=== PATIENT | male | born 1960 | race African-American/Black ===

== ENCOUNTER 2024-04-29 18:28 | Inpatient (IN) | payer MEDICAID, OTHER ==
[~2024-04-29] VITALS: Ht 180.3 cm; Wt 122.0 kg
[2024-04-29 19:20] LABS: Basophils # (auto) 0.1 10 ^3/uL (0-0.2); Eosinophils # (auto) 0.1 10 ^3/uL (0-0.8); Lymphocytes # (auto) 0.3 10 ^3/uL (0.4-5.4); Red Cell Distribution Width 18.3 % (11.8-14.3); White Blood Cell 7.1 10^3/uL (4.4-10.8)
[2024-04-29 19:24] LABS: Basophils % (auto) 0.7 % (0.0-2.0); Eosinophils % (auto) 1.3 % (0.0-7.0); Hematocrit 36.3 % (41.0-53.0); Hemoglobin 11.7 g/dL (13.5-17.5); Lymphocytes % (auto) 4.8 % (10.0-50.0); Mean Corpuscular Hemoglobin 27.2 pg (28.0-32.0); Mean Corpuscular Hgb Conc. 32.4 g/dL (32.0-36.0); Mean Corpuscular Volume 84.1 fL (80.0-100.0); Monocytes # (auto) 0.6 10 ^3/uL (0-1.3); Neutrophils # (auto) 5.9 10 ^3/uL (1.6-8.6); Neutrophils % (auto) 84.2 % (37.0-80.0); Red Blood Cells 4.32 10^6/uL (4.5-5.90)
[2024-04-29 19:43] LABS: Chloride 97 mmol/L (98-107); Potassium 3.9 mmol/L (3.5-5.1); Sodium 136 mmol/L (136-145)
[2024-04-29 19:44] LABS: Anion Gap 7 (5-15); Calcium 8.4 mg/dL (8.5-10.1); Carbon Dioxide 32 mmol/L (20-30)
[2024-04-29 19:49] LABS: BUN/Creatinine Ratio 5.1 (10.0-20.0); Blood Urea Nitrogen 33 mg/dL (9-23); Glucose 153 mg/dL (74-106)
[2024-04-29 19:57] LABS: INR 1.33 (0.9-1.15); Prothrombin Time 13.8 sec (9.3-11.8)
[2024-04-29 19:59] LABS: Platelet Estimate Decreased
[2024-04-29] MEDS: HYDROcodone-ACET 10/325MG TAB PO ONE (20:32)
[2024-04-29 20:48] VITALS: O2SAT 95
[2024-04-29] MEDS ORDERED: DOCUSATE SOD 100 MG CAP PO PRN (22:30)
[2024-04-29] MEDS ORDERED: DEXTROSE (50%) 50ML SYRG IV PRN (22:30)
[2024-04-29] MEDS ORDERED: MORPHINE SULFATE INJ 2 MG/ml SYRG IV PRN (22:30)
[2024-04-29] MEDS ORDERED: NITROGLYCERIN 0.4 MG SL TAB SL PRN (22:30)
[2024-04-29] MEDS ORDERED: ONDANSETRON HCL 4 MG/2 ML VIAL IV PRN (22:30)
[2024-04-29] MEDS ORDERED: BUPR10DI TOP (22:34)
[2024-04-29] MEDS ORDERED: ATOR40TA52 PO (22:34)
[2024-04-29] MEDS ORDERED: LEVO100T8 PO (22:34)
[2024-04-29] MEDS ORDERED: CARV6.2551 PO (22:34)
[2024-04-29] MEDS ORDERED: FURO80TA3 PO (22:34)
[2024-04-29] MEDS ORDERED: DIPH-751 PO (22:34)
[2024-04-29] MEDS ORDERED: SACU1TAB PO (22:34)
[2024-04-29] MEDS ORDERED: ASPI-325 PO (22:34)
[2024-04-29] MEDS ORDERED: GAB100C PO (22:34)
[2024-04-30] MEDS: HYDROcodone-ACET 5/325MG TAB PO PRN (00:30)
[2024-04-30] MEDS: ACETAMINOPHEN 325 MG TAB PO PRN (04:55)
[2024-04-30] MEDS ORDERED: diphenhdrAMINE HCL 25 MG CAP PO PRN (06:00)
[2024-04-30] MEDS: SODIUM CHLOR 0.9% PF (SALINE LOCK) 10ML VIAL/SYR IV SCH (06:32)
[2024-04-30] MEDS: FUROSEMIDE 40 MG TAB PO SCH (06:36)
[2024-04-30] MEDS: GABAPENTIN 100 MG CAP PO SCH (06:36)
[2024-04-30] MEDS: ACCU-CHEK COMFORT CURVE STRIP VI SCH (06:37)
[2024-04-30] MEDS: InsuLIN REG 1unit/0.01ml Soln (100units/ml) SC SCH ×2 (06:38→22:00)
[2024-04-30] MEDS: CARVEDILOL 3.125 MG TAB PO SCH (08:00)
[2024-04-30] MEDS ORDERED: SODIUM CHL 0.9% 1000 ML BAG XX ONE (08:30)
[2024-04-30 08:55] VITALS: PULSE 86; O2SAT 96
[2024-04-30 09:30] LABS: Basophils # (auto) 0 10 ^3/uL (0-0.2); Basophils % (auto) 0.7 % (0.0-2.0); Eosinophils # (auto) 0 10 ^3/uL (0-0.8); Eosinophils % (auto) 0.5 % (0.0-7.0); Hematocrit 36.8 % (41.0-53.0); Hemoglobin 11.7 g/dL (13.5-17.5); Lymphocytes # (auto) 0.3 10 ^3/uL (0.4-5.4); Lymphocytes % (auto) 3.7 % (10.0-50.0); Mean Corpuscular Hgb Conc. 31.9 g/dL (32.0-36.0); Mean Corpuscular Volume 84.8 fL (80.0-100.0); Monocytes # (auto) 0.5 10 ^3/uL (0-1.3); Monocytes % (auto) 7.3 % (0.0-12.0); Neutrophils # (auto) 6.1 10 ^3/uL (1.6-8.6); Neutrophils % (auto) 87.8 % (37.0-80.0); Red Blood Cells 4.33 10^6/uL (4.5-5.90); Red Cell Distribution Width 18.5 % (11.8-14.3); White Blood Cell 6.9 10^3/uL (4.4-10.8)
[2024-04-30 09:31] VITALS: BP 121/78; PULSE 80; PULSE 81; RESP 16; TEMP 98.7; O2SAT 90; O2SAT 92
[2024-04-30 09:46] LABS: Alkaline Phosphatase 134 U/L (46-116); Anion Gap 7 (5-15); BUN/Creatinine Ratio 5.5 (10.0-20.0); Blood Urea Nitrogen 39 mg/dL (9-23); Calcium 8.3 mg/dL (8.5-10.1); Carbon Dioxide 32 mmol/L (20-30); Chloride 96 mmol/L (98-107); Glucose 144 mg/dL (74-106); Sodium 135 mmol/L (136-145)
[2024-04-30 09:47] LABS: Albumin 3.8 g/dL (3.2-4.8); Aspartate Aminotransferase 13 U/L (13-40); Bilirubin, Total 0.5 mg/dL (0.2-1.0); Total Protein 7.1 g/dL (5.7-8.2)
[2024-04-30 09:52] LABS: INR 1.31 (0.9-1.15); Partial Thromboplastin Time 31.9 SEC (24.5-34.5); Prothrombin Time 13.6 sec (9.3-11.8)
[2024-04-30 10:14] LABS: Alanine Aminotransferase < 9 U/L (7-40)
[2024-04-30] MEDS: ASPirin-EC 81 mg tab PO SCH (11:01)
[2024-04-30] MEDS: LEVOTHYROXINE SODIUM 100 MCG TAB PO SCH (11:02)
[2024-04-30] MEDS: ATORVASTATIN 20 MG TAB PO SCH (11:02)
[2024-04-30 12:00] VITALS: BP 135/76; PULSE 80; RESP 18; TEMP 98.1; O2SAT 97
[2024-04-30 16:00] VITALS: BP 130/67; PULSE 90; RESP 18; TEMP 98; O2SAT 92
[2024-04-30] MEDS: WARFARIN SODIUM 2 MG TAB PO ONE (17:54)
[2024-04-30 20:00] VITALS: RESP 16
[2024-04-30 21:00] VITALS: BP 129/70; PULSE 85; RESP 18; TEMP 98.8; O2SAT 95
[2024-05-01] VITALS (7 sets, daily range): BP systolic 119–157; BP diastolic 59–97; PULSE 84–96; RESP 17–20; TEMP 98–98.7; O2SAT 91–100
[2024-05-01 05:43] LABS: Basophils # (auto) 0.1 10 ^3/uL (0-0.2); Basophils % (auto) 1.2 % (0.0-2.0); Eosinophils # (auto) 0.1 10 ^3/uL (0-0.8); Eosinophils % (auto) 1.9 % (0.0-7.0); Hematocrit 36.8 % (41.0-53.0); Hemoglobin 11.6 g/dL (13.5-17.5); Lymphocytes # (auto) 0.5 10 ^3/uL (0.4-5.4); Lymphocytes % (auto) 7.6 % (10.0-50.0); Mean Corpuscular Hgb Conc. 31.5 g/dL (32.0-36.0); Mean Corpuscular Volume 85.7 fL (80.0-100.0); Monocytes # (auto) 0.5 10 ^3/uL (0-1.3); Monocytes % (auto) 8.8 % (0.0-12.0); Neutrophils # (auto) 4.9 10 ^3/uL (1.6-8.6); Neutrophils % (auto) 80.5 % (37.0-80.0); Red Cell Distribution Width 18.6 % (11.8-14.3); White Blood Cell 6.1 10^3/uL (4.4-10.8)
[2024-05-01 06:00] LABS: INR 1.34 (0.9-1.15); Prothrombin Time 13.9 sec (9.3-11.8)
[2024-05-01] MEDS: WARFARIN SODIUM 2 MG TAB PO ONE (17:13)
[2024-05-02] VITALS (8 sets, daily range): BP systolic 119–155; BP diastolic 55–82; PULSE 80–94; RESP 16–20; TEMP 97.5–98.7; O2SAT 90–94
[2024-05-02 08:38] LABS: INR 1.32 (0.9-1.15); Prothrombin Time 13.7 sec (9.3-11.8)
[2024-05-02] MEDS: WARFARIN SODIUM 2.5 MG TAB PO ONE (17:12)
[2024-05-03 01:25] VITALS: BP 124/73; PULSE 90; RESP 18; TEMP 98.3; O2SAT 93
[2024-05-03 06:22] LABS: INR 1.3 (0.9-1.15); Prothrombin Time 13.5 sec (9.3-11.8)
[2024-05-03 08:00] VITALS: PULSE 94
[2024-05-03 08:58] VITALS: BP 135/77; PULSE 94; RESP 17; TEMP 98.6; O2SAT 93
[2024-05-03 12:26] VITALS: BP 140/77; PULSE 89; RESP 16; TEMP 97.6; O2SAT 98
[2024-05-03 15:28] VITALS: BP 140/70; PULSE 89; TEMP 36.4
[2024-05-03 16:55] VITALS: BP 135/75; PULSE 87; RESP 16; TEMP 99; O2SAT 93
[2024-05-03] MEDS ORDERED: WARFARIN SODIUM 2.5 MG TAB PO ONE (17:00)
== END 2024-05-03 16:18 | disposition home or self-care (01) | DRG 190 ==
LOC: EDBD 18:28 → ER 18:28 → TELE 22:54 → TELE-WESTW 04-30 09:25
PROVIDERS: ADMIT Nurse Practitioner Family; ATTEND Family Medicine
PROC: 5A1D70Z Performance of Urinary Filtration, Intermittent, Less than 6 Hours Per Day (ICD-10-PCS; principal; 2024-04-30)
PROC: 5A1D70Z Performance of Urinary Filtration, Intermittent, Less than 6 Hours Per Day (ICD-10-PCS; 2024-05-02)
DX: I21.4 Non-ST elevation (NSTEMI) myocardial infarction (principal); I50.21 Acute systolic (congestive) heart failure; E43 Unspecified severe protein-calorie malnutrition; J96.10 Chronic respiratory failure, unspecified whether with hypoxia or hypercapnia; I42.9 Cardiomyopathy, unspecified; N18.6 End stage renal disease; D63.8 Anemia in other chronic diseases classified elsewhere; I13.2 Hypertensive heart and chronic kidney disease with heart failure and with stage 5 chronic kidney disease, or end stage renal disease; E11.22 Type 2 diabetes mellitus with diabetic chronic kidney disease; E03.9 Hypothyroidism, unspecified; E11.65 Type 2 diabetes mellitus with hyperglycemia; E66.9 Obesity, unspecified; I34.0 Nonrheumatic mitral (valve) insufficiency; F14.10 Cocaine abuse, uncomplicated; Z95.1 Presence of aortocoronary bypass graft; Z68.37 Body mass index [BMI] 37.0-37.9, adult; Z99.2 Dependence on renal dialysis
CPT/HCPCS: 36415; 70450; 71045; 72125; 73110; 80048; 80053; 82962; 84443; 84484; 85025; 85610; 85730; 87340; 90935; 93005; 93306; 93886; 97110; 97163; G0378; J1815